=== PATIENT | male | born 2000 | race Caucasian/White ===

== ENCOUNTER 2025-03-25 14:27 | Outpatient (CLI) | payer OTHER | END 2025-03-25 14:28 | disposition home or self-care (01) | LOC: ULT 14:27 | PROVIDERS: ATTEND Student in an Organized Health Care Education/Training Program | DX: N50.811 Right testicular pain (principal); N43.3 Hydrocele, unspecified | CPT/HCPCS: 76870; 93976 ==

== ENCOUNTER 2025-04-20 13:44 | Inpatient (IN) | payer OTHER ==
[~2025-04-20 13:44] MED LIST: Iopamidol-370 76% 500 ML MDV (1 ML CHARGE) ONE
[2025-04-20 15:43] LABS: #Basophils Less than 0.03 10x3/uL (0.0-0.2); #Eosinophils 0.03 10x3/uL (0.0-0.7); #Monocytes 0.68 10x3/uL (0.11-0.59); #Neutrophils 6.13 10x3/uL (1.40-6.50); %Basophils 0.2 % (0.0-1.0); %Eosinophils 0.4 % (0.0-10.0); %Lymphocytes 18.3 % (21.0-51.0); %Monocytes 8.1 % (0.0-10.0); %Neutrophils 72.8 % (42.0-75.0); Hematocrit 44.5 % (42.0-52.0); Hemoglobin 15.5 g/dL (14.0-18.0); Mean Corpuscular Hemoglobin 27.8 pg (27.0-31.0); Mean Corpuscular Volume 79.9 fL (78.0-98.0); Platelet Count 289 10x3/uL (130-400); Red Blood Cell (RBC) Count 5.57 mill/uL (4.70-6.10); White Blood Cell (WBC) Count 8.42 10x3/uL (4.8-10.8)
[2025-04-20 16:01] LABS: ALT (SGPT) 17 U/L (Less than 45); AST (SGOT) 19 U/L (11-34); Albumin 4.7 g/dL (3.1-4.5); Alkaline Phosphatase 89 U/L (40-110); Anion Gap 17 mmol/L (10-20); BUN (Urea Nitrogen) 9 mg/dL (8.9-20.6); Bilirubin, Total 0.5 mg/dL (0.3-1.2); CRP, High Sensitivity at Bryan 0.06 mg/dL (< or = 0.5); Calc. Creatinine Clearance 0 mL/min (70-130); Calcium 9.5 mg/dL (7.8-10.44); Carbon Dioxide 22 mmol/L (22-29); Chloride 104 mmol/L (98-107); Globulin 2.7 g/dL (2.4-3.5); Glucose 96 mg/dL (70-105); Potassium 3.7 mmol/L (3.5-5.1); Sodium 139 mmol/L (136-145)
[2025-04-20 16:02] LABS: CK (CPK) 75.0 U/L (30-200)
[2025-04-20] MEDS ORDERED: Ondansetron PF 4 MG/2 ML Vial IVP PRN (18:27)
[2025-04-20] MEDS: methylPREDNISolone Sod Succ 1 GM in Sodium Chloride 0.9% 250 ML 250 ML IVPB SCH (22:08)
[2025-04-21 03:57] LABS: #Basophils Less than 0.03 10x3/uL (0.0-0.2); #Eosinophils Less than 0.03 10x3/uL (0.0-0.7); #Monocytes 0.07 10x3/uL (0.11-0.59); #Neutrophils 7.91 10x3/uL (1.40-6.50); %Basophils 0.1 % (0.0-1.0); %Eosinophils 0.0 % (0.0-10.0); %Lymphocytes 8.9 % (21.0-51.0); %Monocytes 0.8 % (0.0-10.0); %Neutrophils 89.9 % (42.0-75.0); Hematocrit 41.8 % (42.0-52.0); Hemoglobin 14.0 g/dL (14.0-18.0); Mean Corpuscular Hemoglobin 27.1 pg (27.0-31.0); Mean Corpuscular Volume 81.0 fL (78.0-98.0); Platelet Count 288 10x3/uL (130-400); Red Blood Cell (RBC) Count 5.16 mill/uL (4.70-6.10); White Blood Cell (WBC) Count 8.80 10x3/uL (4.8-10.8)
[2025-04-21 04:12] LABS: Anion Gap 14 mmol/L (10-20); BUN (Urea Nitrogen) 11 mg/dL (8.9-20.6); Calc. Creatinine Clearance 0 mL/min (70-130); Calcium 9.6 mg/dL (7.8-10.44); Carbon Dioxide 22 mmol/L (22-29); Chloride 109 mmol/L (98-107); Glucose 175 mg/dL (70-105); Potassium 4.5 mmol/L (3.5-5.1); Sodium 140 mmol/L (136-145)
[2025-04-21 07:48] VITALS: BMI 35.4
[2025-04-21] MEDS ORDERED: Glucagon 1 MG/ML KIT IM PRN (08:44)
[2025-04-21] MEDS ORDERED: Dextrose 50% Abboject 50 ML SYRINGE SLOW IVP PRN (08:44)
[2025-04-21] MEDS: methylPREDNISolone Sod Succ 1 GM in Sodium Chloride 0.9% 250 ML 250 ML IVPB SCH (09:05)
[2025-04-21] MEDS ORDERED: Sodium Bicarbonate 2.5 MEQ/5 ML SDV ONE (12:39)
[2025-04-21 14:33] LABS: CSF, Glucose 91 mg/dl (40-70); CSF, Protein 25.5 mg/dL (15-40)
[2025-04-21 14:38] LABS: CSF Source CSF
[2025-04-21 14:39] LABS: Color Of CSF Supernatant COLORLESS (Colorless); Unspun CSF Color COLORLESS (Colorless)
[2025-04-21 15:10] LABS: Cell Count Non Hematic 28 %
[2025-04-21] MEDS: Acetaminophen 325 MG TAB PO PRN (20:46)
[2025-04-21] MEDS: Melatonin 3 MG TAB PO PRN (20:47)
[2025-04-22 03:50] LABS: #Basophils Less than 0.03 10x3/uL (0.0-0.2); #Eosinophils Less than 0.03 10x3/uL (0.0-0.7); #Monocytes 1.52 10x3/uL (0.11-0.59); #Neutrophils 14.44 10x3/uL (1.40-6.50); %Basophils 0.1 % (0.0-1.0); %Eosinophils 0.0 % (0.0-10.0); %Lymphocytes 6.8 % (21.0-51.0); %Monocytes 8.8 % (0.0-10.0); %Neutrophils 83.8 % (42.0-75.0); Hematocrit 39.7 % (42.0-52.0); Hemoglobin 13.0 g/dL (14.0-18.0); Mean Corpuscular Hemoglobin 27.0 pg (27.0-31.0); Mean Corpuscular Volume 82.5 fL (78.0-98.0); Platelet Count 299 10x3/uL (130-400); Red Blood Cell (RBC) Count 4.81 mill/uL (4.70-6.10); White Blood Cell (WBC) Count 17.23 10x3/uL (4.8-10.8)
[2025-04-22 04:13] LABS: Anion Gap 15 mmol/L (10-20); BUN (Urea Nitrogen) 19 mg/dL (8.9-20.6); Calc. Creatinine Clearance 198 mL/min (70-130); Calcium 9.1 mg/dL (7.8-10.44); Carbon Dioxide 22 mmol/L (22-29); Chloride 106 mmol/L (98-107); Glucose 138 mg/dL (70-105); Potassium 4.2 mmol/L (3.5-5.1); Sodium 139 mmol/L (136-145)
[2025-04-22 15:04] LABS: Reference Lab Name LABCORP
[2025-04-22] MEDS: Senokot S 8.6-50 MG TAB PO PRN (15:50)
[2025-04-22] MEDS: Famotidine 20 MG TAB PO SCH (21:40)
[2025-04-23 04:30] LABS: #Basophils Less than 0.03 10x3/uL (0.0-0.2); #Eosinophils Less than 0.03 10x3/uL (0.0-0.7); #Monocytes 0.79 10x3/uL (0.11-0.59); #Neutrophils 11.43 10x3/uL (1.40-6.50); %Basophils 0.1 % (0.0-1.0); %Eosinophils 0.0 % (0.0-10.0); %Lymphocytes 7.2 % (21.0-51.0); %Monocytes 6.0 % (0.0-10.0); %Neutrophils 86.2 % (42.0-75.0); Hematocrit 40.4 % (42.0-52.0); Hemoglobin 13.4 g/dL (14.0-18.0); Mean Corpuscular Hemoglobin 27.2 pg (27.0-31.0); Mean Corpuscular Volume 81.9 fL (78.0-98.0); Platelet Count 308 10x3/uL (130-400); Red Blood Cell (RBC) Count 4.93 mill/uL (4.70-6.10); White Blood Cell (WBC) Count 13.25 10x3/uL (4.8-10.8)
[2025-04-23 04:46] LABS: Anion Gap 15 mmol/L (10-20); BUN (Urea Nitrogen) 15 mg/dL (8.9-20.6); Calc. Creatinine Clearance 254 mL/min (70-130); Calcium 9.4 mg/dL (7.8-10.44); Carbon Dioxide 22 mmol/L (22-29); Chloride 106 mmol/L (98-107); Glucose 119 mg/dL (70-105); Potassium 4.0 mmol/L (3.5-5.1); Sodium 139 mmol/L (136-145)
[2025-04-23 14:13] LABS: HSV 1 - DNA, CSF Negative (Negative); HSV 2 - DNA, CSF Negative (Negative)
[2025-04-24 04:08] LABS: #Basophils Less than 0.03 10x3/uL (0.0-0.2); #Eosinophils Less than 0.03 10x3/uL (0.0-0.7); #Monocytes 0.83 10x3/uL (0.11-0.59); #Neutrophils 9.86 10x3/uL (1.40-6.50); %Basophils 0.1 % (0.0-1.0); %Eosinophils 0.0 % (0.0-10.0); %Lymphocytes 9.6 % (21.0-51.0); %Monocytes 7.0 % (0.0-10.0); %Neutrophils 82.7 % (42.0-75.0); Hematocrit 39.8 % (42.0-52.0); Hemoglobin 13.0 g/dL (14.0-18.0); Mean Corpuscular Hemoglobin 27.1 pg (27.0-31.0); Mean Corpuscular Volume 83.1 fL (78.0-98.0); Platelet Count 287 10x3/uL (130-400); Red Blood Cell (RBC) Count 4.79 mill/uL (4.70-6.10); White Blood Cell (WBC) Count 11.91 10x3/uL (4.8-10.8)
[2025-04-24 04:29] LABS: Anion Gap 12 mmol/L (10-20); BUN (Urea Nitrogen) 18 mg/dL (8.9-20.6); Calc. Creatinine Clearance 227 mL/min (70-130); Calcium 9.0 mg/dL (7.8-10.44); Carbon Dioxide 25 mmol/L (22-29); Chloride 106 mmol/L (98-107); Glucose 122 mg/dL (70-105); Potassium 4.3 mmol/L (3.5-5.1); Sodium 139 mmol/L (136-145)
[2025-04-24 11:30] VITALS: BP 146/73; TEMP 98.1
[2025-04-27 08:37] LABS: IgG/Alb CSF 0.09 (0.00-0.25)
== END 2025-04-24 11:45 | disposition home or self-care (01) | DRG 59 ==
LOC: ERS 13:44 → PCU 17:38
PROVIDERS: ADMIT Family Medicine; ATTEND Internal Medicine
PROC: 009U3ZX Drainage of Spinal Canal, Percutaneous Approach, Diagnostic (ICD-10-PCS; principal; 2025-04-21)
PROC: B01B1ZZ Fluoroscopy of Spinal Cord using Low Osmolar Contrast (ICD-10-PCS; 2025-04-21)
DX: G37.9 Demyelinating disease of central nervous system, unspecified (principal); F84.0 Autistic disorder; R53.1 Weakness; E86.0 Dehydration; G35 Multiple sclerosis
CPT/HCPCS: 36415; 36416; 62270; 70496; 70498; 70551; 71045; 72141; 72148; 80048; 80053; 82040; 82042; 82525; 82550; 82607; 82784; 82945; 83873; 83916; 84157; 85025; 85060; 86141; 86592; 86618; 86788; 86789; 87529; 87798; 89051; 93005; 94760; 95700; 95711; 95957; 96365; J1815; J2930; J7050; Q9967